=== PATIENT | male | born 1950 | race Caucasian/White ===

== ENCOUNTER 2017-02-23 10:18 | Day surgery (SDC) | payer OTHER, SELFPAY ==
--- NOTE | ~2017-02-23 | EGD ---
EGD REPORT [facility] [address] [id number] NAME: CHELE ROJO : [birth year] [place]US : [place] [facility] [place] [id number] AGE: 66 ADM/REG DATE : 02/23/17 MR#: [id number] REPORT SERV DATE: 02/23/17 DICTATED BY: ELIZ DUBOIS DATE: 02/23/17 REPORT STATUS : Draft TRANSCRIBED BY: [facility] DATE: 02/23/17 Endoscopy Center Patient Name: Chele Rojo Date of : 1950 Attending MD: ELIZ DUBOIS MD Procedure Date No Time: 02/23/2017 Procedure: Colonoscopy Indications: Heme positive stool, Iron deficiency anemia secondary to chronic blood loss, Follow-up for history of adenomatous polyps in the colon Referring MD: WESTON REGALADO Medicines: Propofol per Anesthesia Complications: No immediate complications. Estimated blood loss: None. Procedure: Pre-Anesthesia Assessment: - After reviewing the risks and benefits, the patient was deemed in satisfactory condition to undergo the procedure. - Prior to the procedure, a History and Physical was performed, and patient medications and allergies were reviewed. The patient's tolerance of previous anesthesia was also reviewed. The risks and benefits of the procedure and the sedation options and risks were discussed with the patient. All questions were answered, and informed consent was obtained. Prior Anticoagulants: The patient has taken Plavix (clopidogrel), last dose was 1 day prior to procedure. ASA Grade Assessment: III - A patient with severe systemic disease. After reviewing the risks and benefits, the patient was deemed in satisfactory condition to undergo the procedure. After I obtained informed consent, the scope was passed under direct vision. Throughout the procedure, the patient's blood pressure, pulse, and oxygen saturations were monitored continuously. The CF [id number] was introduced through the anus and advanced to the cecum, identified by appendiceal orifice and ileocecal valve. The colonoscopy was performed without difficulty. The ileocecal valve and appendiceal orifice were photographed. The patient tolerated the procedure well. The quality of the bowel preparation was good. The bowel preparation used was polyethylene glycol (PEG). Scope withdrawal time was greater than 7 minutes. Findings: The perianal and digital rectal examinations were normal. Pertinent negatives include normal sphincter tone. EGD REPORT [place] [id number] [place]. [address] NAME: CHELE ROJO : [birth year] STATUS : REG [facility]#: [id number] AGE: 66 ADM/REG DATE : 02/23/17 MR#: [id number] REPORT SERV DATE: 02/23/17 DICTATED BY: ELIZ DUBOIS DATE: 02/23/17 REPORT STATUS : Draft TRANSCRIBED BY: [facility] DATE: 02/23/17 Non-bleeding internal hemorrhoids were found during retroflexion and were small and Grade I (internal hemorrhoids that do not prolapse). The exam was otherwise without abnormality. Impression: - Non-bleeding internal hemorrhoids. - The examination was otherwise normal. Recommendation: - Discharge patient to home (ambulatory). - Return to previous diet. - Continue present medications. - Resume Plavix (clopidogrel) at prior dose today. - Repeat colonoscopy in 5 years for surveillance. - Patient has a contact number available for emergencies. The signs and symptoms of potential delayed complications were discussed with the patient. Return to normal activities tomorrow. Written discharge instructions were provided to the patient. Procedure Code(s): --- Professional --- 95456, Colonoscopy, flexible, proximal to splenic flexure; diagnostic, with or without collection of specimen(s) by brushing or washing, with or without colon decompression (separate procedure) Diagnosis Code(s): --- Professional --- K64.0, First degree hemorrhoids R19.5, Other fecal abnormalities D50.0, Iron deficiency anemia secondary to blood loss (chronic) Z86.010, Personal history of colonic polyps CPT copyright 2013 [employer]. All rights reserved. The codes documented in this report are preliminary and upon yarder boss review may be revised to meet current compliance requirements. ELIZ DUBOIS MD 02/23/2017 12:16 PM This report has been signed electronically. Number of Addenda: 0 Note Initiated On: 02/23/2017 11:37 AM Scope Withdrawal Time 0 hours 7 minutes 1 second [address] [place] [id number]
--- NOTE | ~2017-02-23 | EGD ---
EGD REPORT [facility] [address] [address] NAME: CHELE ROJO : [birth year] STATUS : REG [facility] [place] PAT#: [id number] AGE: 66 ADM/REG DATE : 02/23/17 MR#: [id number] REPORT SERV DATE: 02/23/17 DICTATED BY: ELIZ DUBOIS DATE: 02/23/17 REPORT STATUS : Draft [facility] DATE: 02/23/17 Endoscopy Center Patient Name: Chele Rojo Date of : 1950 Attending MD: ELIZ DUBOIS MD Procedure Date No Time: 02/23/2017 Procedure: Upper GI endoscopy Indications: Iron deficiency anemia secondary to chronic blood loss, Heme positive stool Referring MD: WESTON REGALADO Medicines: Propofol per Anesthesia Complications: No immediate complications. Estimated blood loss: None. Procedure: Pre-Anesthesia Assessment: - After reviewing the risks and benefits, the patient was deemed in satisfactory condition to undergo the procedure. - Prior to the procedure, a History and Physical was performed, and patient medications and allergies were reviewed. The patient's tolerance of previous anesthesia was also reviewed. The risks and benefits of the procedure and the sedation options and risks were discussed with the patient. All questions were answered, and informed consent was obtained. Prior Anticoagulants: The patient has taken Plavix (clopidogrel), last dose was 1 day prior to procedure. ASA Grade Assessment: III - A patient with severe systemic disease. After reviewing the risks and benefits, the patient was deemed in satisfactory condition to undergo the procedure. After obtaining informed consent, the endoscope was passed under direct vision. Throughout the procedure, the patient's blood pressure, pulse, and oxygen saturations were monitored continuously. The GIF [id number] was introduced through the mouth, and advanced to the jejunum. The upper GI endoscopy was accomplished without difficulty. The patient tolerated the procedure well. Findings: The Z-line was irregular. Biopsies were taken with a cold forceps for histology. Estimated blood loss: none. Diffuse mild inflammation characterized by erythema and granularity was found in the gastric antrum. Biopsies were taken with a cold forceps for histology. Estimated blood loss: none. The gastroesophageal junction (on retroflexion) was normal. The examined duodenum was normal. Biopsies were taken with a cold EGD REPORT [address] [address] NAME: CHELE ROJO : [birth year] STATUS : REG [facility]#: [id number] AGE: 66 ADM/REG DATE : 02/23/17 MR#: [id number] REPORT SERV DATE: 02/23/17 DICTATED BY: ELIZ DUBOIS DATE: 02/23/17 REPORT STATUS : Draft TRANSCRIBED BY: [facility] DATE: 02/23/17 forceps for histology. Estimated blood loss: none. Impression: - Z-line irregular,. Biopsied. - Gastritis. Biopsied. - Normal gastroesophageal junction. - Normal examined duodenum. Biopsied. Recommendation: - Discharge patient to home (ambulatory). - Return to previous diet. - Continue present medications. - Take Prilosec OTC (omeprazole) 20 mg daily for 6-8 weeks. - Await pathology results. - Perform a colonoscopy today. - Patient has a contact number available for emergencies. The signs and symptoms of potential delayed complications were discussed with the patient. Return to normal activities tomorrow. Written discharge instructions were provided to the patient. Procedure Code(s): --- Professional --- 10828, Esophagogastroduodenoscopy, flexible, transoral; with biopsy, single or multiple Diagnosis Code(s): --- Professional --- K22.8, Other specified diseases of esophagus K29.70, Gastritis, unspecified, without bleeding D50.0, Iron deficiency anemia secondary to blood loss (chronic) R19.5, Other fecal abnormalities CPT copyright 2013 [employer]. All rights reserved. The codes documented in this report are preliminary and upon data migration lead review may be revised to meet current compliance requirements. ELIZ DUBOIS MD 02/23/2017 11:57 AM This report has been signed electronically. Number of Addenda: 0 Note Initiated On: 02/23/2017 11:40 AM Scope Withdrawal Time 0 hours 0 minutes 0 seconds [address] [place] [address]
[~2017-02-23 10:18] MED LIST: ALTACE10 MG PO; ASA5GR PO; ASAB PO; COREG3; COREG3 PO; COREG6 PO; HYDROCHLOROT12.5 MG PO; HYDROCHLOROT25 MG PO; ISOPTIN SR240 MG PO; LIPITOR20 PO; PLAVIX PO; TRANDAT300 PO
[2017-06-30] MEDS ORDERED: ASAB PO (01:46)
[2017-06-30] MEDS ORDERED: COREG6 PO (01:46)
[2017-06-30] MEDS ORDERED: ALTACE10 MG PO (01:46)
[2017-06-30] MEDS ORDERED: LIPITOR20 PO (01:47)
[2017-06-30] MEDS ORDERED: VERELAN240 MG PO (01:47)
[2017-06-30] MEDS ORDERED: PLAVIX PO (01:47)
[2017-06-30] MEDS ORDERED: HCTZ25B PO (01:48)
[2017-06-30] MEDS ORDERED: GOODY'S EX-STR1 EAC1 PO (01:49)
[2017-06-30] MEDS ORDERED: NITROSTAT0.4 MG SL (01:49)
[2017-07-02] MEDS ORDERED: PRILO PO (11:17)
== END 2017-02-23 23:59 | disposition home health service (06) ==
LOC: DMU 10:18
PROVIDERS: Internal Medicine Gastroenterology
PROC: 0DJD8ZZ Inspection of Lower Intestinal Tract, Via Natural or Artificial Opening Endoscopic (ICD-10-PCS; 2017-02-23)
PROC: 0DB68ZX Excision of Stomach, Via Natural or Artificial Opening Endoscopic, Diagnostic (ICD-10-PCS; principal; 2017-02-23 12:00)
PROC: 0DB98ZX Excision of Duodenum, Via Natural or Artificial Opening Endoscopic, Diagnostic (ICD-10-PCS; 2017-02-23 12:00)
DX: K29.50 Unspecified chronic gastritis without bleeding (principal); K20.9 Esophagitis, unspecified; I25.10 Atherosclerotic heart disease of native coronary artery without angina pectoris; J44.9 Chronic obstructive pulmonary disease, unspecified; I73.9 Peripheral vascular disease, unspecified; I10 Essential (primary) hypertension; E78.5 Hyperlipidemia, unspecified; D50.0 Iron deficiency anemia secondary to blood loss (chronic); E78.00 Pure hypercholesterolemia, unspecified; M19.90 Unspecified osteoarthritis, unspecified site; K64.0 First degree hemorrhoids; Z95.1 Presence of aortocoronary bypass graft; Z86.010 Personal history of colon polyps; Z79.899 Other long term (current) drug therapy; F17.210 Nicotine dependence, cigarettes, uncomplicated; Z98.890 Other specified postprocedural states
CPT/HCPCS: 88305; 88342